=== PATIENT | male | born 1950 | race Caucasian/White ===

== ENCOUNTER 2017-09-14 20:24 | Emergency (ER) | payer OTHER ==
[2017-09-14 20:29] VITALS: BP 149/108
--- NOTE | 2017-09-14 20:41 | EDPHY ---
H & P Time Seen by Provider: 09/14/17 20:40 HPI/ROS: Chief complaint. Dog bite HPI. 67-year-old male dog bite right thigh while jogging earlier today. It occurred here in [place]. It was a pit bull type dog. He was not sure the ulnar where the dog is from. It ran up bit him in the thigh and then ran off. He did think it had a collar and tag on. He cleaned at home but is concerned about infection. He has been ambulatory. No sense of foreign body. No complaints of weakness or paresthesias. ROS Constitutional. no fever/chills, no weakness Eyes. no problems with vision ENT. no sore throat, no nasal drainage Cardiovascular. no chest pain Respiratory. no shortness of breath, no cough Abdominal. no abdominal pain, no nausea/vomiting, no diarrhea . no problems urinating MS. no calf pain/swelling, no neck/back pain, no joint pain Skin. Dog bite right thigh Lymph. no swollen glands Neuro. no headache, no dizziness, no difficulty walking or with speech Past Medical/Surgical History: Healthy. Up-to-date on tetanus immunization Social History: Single, nonsmoker, no alcohol Smoking Status: Never smoked Physical Exam: General Appearance: Pleasant well-developed male mild distress vital signs stable Eyes: Pupils equal and round no pallor or injection. ENT, Mouth: Mucous membranes are moist. Respiratory: There are no retractions, lungs are clear to auscultation. Cardiovascular: Regular rate and rhythm. Gastrointestinal: Abdomen is soft and nontender, no masses, bowel sounds normal. Neurological: Awake and alert, sensory and motor exams grossly normal. Skin: Dog bite right anterior thigh. Superficial punctures to the skin. Some bruising around. No evidence of foreign body. Distal motor vascular sensitivity is intact Musculoskeletal: Neck is supple nontender. Extremities symmetrical, full range of motion. Psychiatric: Patient is oriented X 3, there is no agitation. Constitutional: Initial Vital Signs Temperature (C) 36.7 C 09/14/17 20:25 Heart Rate 71 09/14/17 20:25 Respiratory Rate 19 09/14/17 20:25 Blood Pressure 149/108 H 09/14/17 20:25 O2 Sat (%) 97 09/14/17 20:25 O2 Delivery Mode Room Air Allergies/Adverse Reactions: No Known Allergies Allergy (Unverified 09/14/17 20:25) Home Medications: Medication Instructions Recorded Amoxicillin/Clavulanate Pot 875 mg PO BID #7 tab 09/14/17 [Augmentin 875 MG TAB (*)] Medical Decision Making Procedures: Wound is cleaned and dressed. Augmentin orally Animal Control notified ED Course/Re-evaluation: Patient remains stable. Patient and I discussed treatment plan including criteria for return importance of follow-up further evaluation. He expresses understanding and agreement Differential Diagnosis: Dog bite bite by unknown dog. It did have collar and tag so rabies is less likely. Concern for infection. Departure - Departure Disposition: Home, Routine, Self-Care Clinical Impression: Dog bite Qualifiers: Encounter type: initial encounter Qualified Code(s): W54.0XXA - Bitten by dog, initial encounter Condition: Good Instructions: Animal Bite (ED) Additional Instructions: Ice to bite on thigh next 24 hr. Activity as tolerated. Ibuprofen 600 mg every 6 hr as needed for discomfort Augmentin twice daily as antibiotic. Return for signs of infection. Recheck in 3-4 days if not improving Referrals: NONE *PRIMARY CARE P,. [Primary Care Provider] - As per Instructions Prescriptions: Amoxicillin/Clavulanate Pot [Augmentin 875 MG TAB (*)] 875 mg PO BID #7 tab
[2017-09-14] MEDS ORDERED: AMOXICILLIN/CLAVULANATE POT 875/125 MG TAB PO ONE (20:54)
== END 2017-09-14 21:06 | disposition home or self-care (01) ==
DX: S71.151A Open bite, right thigh, initial encounter (principal); W54.0XXA Bitten by dog, initial encounter; Y99.8 Other external cause status; Y93.89 Activity, other specified

== ENCOUNTER → 2018-02-01 | Outpatient (CLI) | payer OTHER | LOC: FIMAGING 10:28 | PROVIDERS: ATTEND Ophthalmology Retina Specialist | DX: Z11.1 Encounter for screening for respiratory tuberculosis (principal); J98.4 Other disorders of lung ==